=== PATIENT | female | born 1945 | race Caucasian/White ===

== ENCOUNTER 2019-04-30 05:34 | Emergency (ER) | payer SELFPAY ==
[2019-04-30] VITALS (7 sets, daily range): BP systolic 131–195; BP diastolic 80–103; PULSE 82–107; RESP 16–19; TEMP 36.9–37.1; O2SAT 94–99; BMI 33.4
--- NOTE | 2019-04-30 06:02 | XR_ITS ---
WS: [id number] XR chest 1V portable [id number] REASON FOR EXAM: dyspnea/cough FINDINGS: Elevation of the right hemidiaphragm. The heart is not enlarged. The lung roldan appear to be adequately aerated no active infiltrates. No osseous abnormalities. XR/XR chest 1V portable [id number] IMPRESSION: Negative chest for active pathology.
--- NOTE | 2019-04-30 06:04 | W.ED.EXTPRO ---
HPI - Extremity Problem General: Chief complaint: Extremity Injury, Lower Stated complaint: CRAMPING IN LEGS X3 WEEKS Time Seen by Provider: 04/30/19 06:02 History of Present Illness: HPI Narrative: 73-year-old female presents to the emergency room via ambulance from [facility]. She tells me she had a stroke in the past which affected both of her left and right sides equally. She moved here from [place] after the stroke to be nearer to family she has improved function she reports bilaterally in her upper extremities but still has some muscle cramping in her left leg. She presents emergency room today because of cramping on the left calf. She usually has been using pain medications ice and heat as well as some physical therapy to try to alleviate this this morning and had become markedly worse this is gone on for 3 to 4 months. Patient also has an essentially carbajal positive review of systems. Patient is nonweightbearing and uses a wheelchair at all times she does assist somewhat in transfers. MD Complaint: extremity pain Onset (ago): month(s) (3) Pain Consistency: intermittent Location: left, lower extremity and other (Left foot and ankle and calf) Quality: aching Radiation: none Relieving factors: nothing Exacerbating factors: nothing Associated symptoms: Reports chest pain and fever(s); Deny rash Context: other (Stroke approximately 1 year ago) Review of Systems Narrative: Review of systems generally unreliable as patient answers in the affirmative to all questions asked Const: Reports: fever, change in appetite, fatigue and malaise ENMT: Reports: throat pain, ear pain and nasal congestion; Denies: nasal discharge Card: Reports: chest pain, edema, shortness of breath on exertion and shortness of breath when lying down Resp: Reports: shortness of breath and non-productive cough; Denies: productive cough GI: Reports: abdominal pain, nausea and bloating; Denies: vomiting, vomiting blood, coffee grounds in vomit, diarrhea, constipation, blood in stool or black tarry stool : Reports: flank pain, difficulty urinating, painful urination, urinary frequency and urinary urgency Musc: Reports: extremity pain, extremity swelling, joint pain, joint stiffness, limited range of motion and muscle cramps Skin/Breast: Reports: itching; Denies: rash PFS ED PFSH: Medical History CVA (cerebral vascular accident) Diabetes mellitus Essential (primary) hypertension Social History Smoking and tobacco status: former smoker Physical Exam Const: COMMON NORMALS: no apparent distress GENERAL APPEARANCE: cooperative and comfortable ORIENTATION/CONSCIOUSNESS: Yes awake, Yes oriented to person, Yes oriented to place and Yes oriented to time HENMT: COMMON NORMALS: normocephalic, head/scalp atraumatic, hearing grossly normal bilaterally, external ears normal, EAC's normal, TM's normal bilaterally, nasal mucous membranes and turbinates normal, moist oral mucous membranes and oropharynx normal HEAD & SCALP: normocephalic and atraumatic NOSE: nasal mucous membranes and turbinates normal EXTERNAL EAR: Yes external ears normal EXTERNAL AUDITORY CANAL: EAC's normal TYMPANIC MEMBRANE: TM's normal bilaterally Eye: COMMON NORMALS: PERRL, EOMs intact bilaterally, conjunctivae normal and no scleral icterus CONJUNCTIVA: Yes conjunctivae normal PUPIL: Yes PERRL Neck/C-Spine: COMMON NORMALS: full ROM, no lymphadenopathy, supple and no JVD Lymph: LYMPHATIC: no lymphadenopathy noted and no lymphedema noted Resp: COMMON NORMALS: normal respiratory effort, no retractions, no use of accessory muscles and clear to auscultation bilaterally AUSCULTATION: clear to auscultation bilaterally Cardio: COMMON NORMALS: no JVD, regular rate, regular rhythm and no murmurs RATE: regular rate RHYTHM: regular rhythm GI: COMMON NORMALS: soft to palpation and no hepatosplenomegaly AUSCULTATION: Yes normoactive bowel sounds PALPATION: Yes soft, No tender, No guarding and Yes no hepatosplenomegaly Extremity: COMMON NORMALS: normal to inspection, normal capillary refill, no clubbing, cyanosis or edema, no calf tenderness and no pedal edema Neuro: SENSORIUM/ORIENTATION: Yes oriented to person, Yes oriented to place and Yes oriented to time Skin: COMMON NORMALS: no rashes or lesions noted GENERAL SKIN EXAM: no rashes or lesions noted Course ED course: Flu a positive suspect her increasing myalgias are due to result of symptoms of the flu start Tamiflu continue other previously prescribed medications Vital Signs: Vital signs: Vital Signs Temperature 98.5 F 04/30/19 07:45 Pulse Rate 107 H 04/30/19 10:09 Respiratory Rate 19 H 04/30/19 10:09 Blood Pressure 195/89 04/30/19 10:09 Pulse Oximetry 94 04/30/19 10:09 MDM - Extremity (Nontraumatic) Lab Data: Labs: Lab Results 04/30/19 04/30/19 04/30/19 Range/Units 06:05 06:05 06:11 WBC 5.6 (4.0-10.0) 10^3/ uL RBC 4.31 (4.1-5.3) 10^6/u L Hgb 12.4 (11.5-15.3) g/dL Hct 38.5 (37.0-47.0) % MCV 89.3 (81-99) fL MCH 28.8 (28.0-34.0) pg MCHC 32.2 (30.0-36.0) g/dL RDW 14.5 (12.1-15.1) % Plt Count 204 (130-400) 10^3/c mm MPV 8.8 (7.4-10.4) fL Neut % (Auto) 70.2 % Lymph % (Auto) 20.8 % [place] % (Auto) 6.6 % Eos % (Auto) 1.6 % Baso % (Auto) 0.4 % Neut # (Auto) 3.9 (1.8-7.7) 10^3/u L Lymph # (Auto) 1.2 (0.8-4.8) 10^3/u L [place] # (Auto) 0.4 (0.2-0.9) 10^3/u L Eos # (Auto) 0.1 (0.0-0.8) 10^3/u L Baso # (Auto) 0.0 (0.0-0.1) 10^3/u L Nucleated RBC % (a uto) 0 % Nucleated RBCs # 0.0 /100WBC Sodium (136-145) mmol/L Potassium (3.5-5.1) mmol/L Chloride (98-107) mmol/L Carbon Dioxide (22-29) mmol/L Anion Gap (5-19) BUN (8-23) mg/dL Creatinine (0.5-0.9) mg/dL Glucose (65-115) mg/dL Calculated Osmolal ity (285-295) mOsm/k g Calcium (8.5-10.5) mg/dL Urine Color Yellow (Yellow) Urine Appearance Clear (CLEAR) Urine pH 6.5 (5-7) Ur Specific Gravit y 1.005 (1.005-1.030) Urine Protein Neg (Negative) Urine Glucose (UA) Norm (Normal) Urine Ketones Negative (Negative) Urine Occult Blood Neg (Negative) Urine Nitrate Negative (Negative) Urine Bilirubin Neg (NEGATIVE) Urine Urobilinogen Norm (Negative) mg/dL Ur Leukocyte [place] ase Negative (Negative) Influenza Type A A g Positive H (Negative) POC Influenza B Ag Negative (Negative) 04/30/19 Range/Units 06:11 WBC (4.0-10.0) 10^3/ uL RBC (4.1-5.3) 10^6/u L Hgb (11.5-15.3) g/dL Hct (37.0-47.0) % MCV (81-99) fL MCH (28.0-34.0) pg MCHC (30.0-36.0) g/dL RDW (12.1-15.1) % Plt Count (130-400) 10^3/c mm MPV (7.4-10.4) fL Neut % (Auto) % Lymph % (Auto) % [place] % (Auto) % Eos % (Auto) % Baso % (Auto) % Neut # (Auto) (1.8-7.7) 10^3/u L Lymph # (Auto) (0.8-4.8) 10^3/u L [place] # (Auto) (0.2-0.9) 10^3/u L Eos # (Auto) (0.0-0.8) 10^3/u L Baso # (Auto) (0.0-0.1) 10^3/u L Nucleated RBC % (a uto) % Nucleated RBCs # /100WBC Sodium 143 (136-145) mmol/L Potassium 3.7 (3.5-5.1) mmol/L Chloride 102 (98-107) mmol/L Carbon Dioxide 28 (22-29) mmol/L Anion Gap 16.7 (5-19) BUN 19 (8-23) mg/dL Creatinine 1.0 H (0.5-0.9) mg/dL Glucose 124 H (65-115) mg/dL Calculated Osmolal ity 294 (285-295) mOsm/k g Calcium 9.3 (8.5-10.5) mg/dL Urine Color (Yellow) Urine Appearance (CLEAR) Urine pH (5-7) Ur Specific Gravit y (1.005-1.030) Urine Protein (Negative) Urine Glucose (UA) (Normal) Urine Ketones (Negative) Urine Occult Blood (Negative) Urine Nitrate (Negative) Urine Bilirubin (NEGATIVE) Urine Urobilinogen (Negative) mg/dL Ur Leukocyte [place] ase (Negative) Influenza Type A A g (Negative) POC Influenza B Ag (Negative) Discharge Plan Discharge Patient Disposition: [facility] Clinical Impression: Influenza A Condition: Stable Prescriptions: New Tamiflu 75 mg capsule 75 mg PO BID 5 Days Qty: 10 RF: 0 No Action Tylenol 325 mg Tablet 650 mg PO QID PRN (Reason: Pain) RF: 0 carvedilol 12.5 mg Tablet 12.5 mg PO BID RF: 0 albuterol sulfate 2.5 mg /3 mL (0.083 %) Solution For Nebulization 2.5 mg INHALATION Q6H RF: 0 Imodium A-D 2 mg Capsule 2 mg PO Q4H PRN (Reason: Diarrhea) RF: 0 Rolaids 550-110 mg Tablet,Chewable 2 tab PO Q4H PRN (Reason: Heartburn) RF: 0 hydrocodone-acetaminophen 5-325 mg Tablet 1 tab PO Q6H PRN (Reason: Pain) RF: 0 lorazepam 0.5 mg Tablet 0.5 mg PO BID PRN (Reason: Anxiety) RF: 0 Milk of Magnesia 400 mg/5 mL Suspension 400 mg PO DAILY PRN (Reason: Constipation) RF: 0 meclizine 25 mg Tablet 25 mg PO BID PRN (Reason: Dizziness) RF: 0 amlodipine 10 mg Tablet 10 mg PO DAILY RF: 0 Dulcolax (bisacodyl) 10 mg Suppository 10 mg NC DAILY PRN (Reason: Constipation) RF: 0 lidocaine 5 % Adhesive Patch,Medicated 1 patch TOPICAL DAILY RF: 0 Fleet Enema 19-7 gram/118 mL Enema 118 ml NC DAILY PRN (Reason: Constipation) RF: 0 gabapentin 300 mg Capsule 300 mg PO BID RF: 0 omeprazole 20 mg Capsule,Delayed Release(Dr/Ec) 20 mg PO BID RF: 0 diclofenac sodium 75 mg Tablet,Delayed Release (Dr/Ec) 75 mg PO BID PRN (Reason: Pain) RF: 0 Dulcolax (bisacodyl) 5 mg Tablet,Delayed Release (Dr/Ec) 5 mg PO DAILY PRN (Reason: Constipation) RF: 0 Ventolin HFA 90 mcg/actuation Hfa Aerosol Inhaler 1 inh INHALATION QID PRN (Reason: Shortness Of Breath) RF: 0 Flonase Allergy Relief 50 mcg/actuation [place],Suspension 1 spray INTRANASAL DAILY RF: 0 docusate sodium 100 mg Tablet 100 mg PO DAILY RF: 0 Claritin 10 mg Tablet 10 mg PO DAILY RF: 0 Novolog Flexpen U-100 Insulin 100 unit/mL (3 mL) Insulin Pen 10 unit SUBCUT BID RF: 0 tizanidine 6 mg Capsule 6 mg PO TID PRN (Reason: Pain) RF: 0 Discharge Orders: Discharge Order (Routine); Ordered 04/30/19 Ordered By: Frankie Damico Discharge Diet: Usual diet Discharge Activity: Resume usual activity Activity Restrictions/Additional Instructions: Return to the [facility] on Tamiflu continue other previously prescribed medications Discharge Date/Time: 04/30/19 12:46 Coding Level of Care Code ED Records Custodian for Chg Fwd Exam Comprehensive
[2019-04-30 06:16] LABS: Basophils % 0.4 %; Eosinophils # 0.1 10^3/uL (0.0-0.8); Eosinophils % 1.6 %; Hematocrit 38.5 % (37.0-47.0); Hemoglobin 12.4 g/dL (11.5-15.3); Lymphocytes # 1.2 10^3/uL (0.8-4.8); Lymphocytes % 20.8 %; Mean Corpuscular HGB Conc 32.2 g/dL (30.0-36.0); Mean Corpuscular Hemoglobin 28.8 pg (28.0-34.0); Mean Corpuscular Volume 89.3 fL (81-99); Mean Platelet Volume 8.8 fL (7.4-10.4); Monocytes # 0.4 10^3/uL (0.2-0.9); Monocytes % 6.6 %; Neutrophils # 3.9 10^3/uL (1.8-7.7); Neutrophils % 70.2 %; Nucleated Red Blood Cells % 0 %; Platelet Count 204 10^3/cmm (130-400); Red Blood Count 4.31 10^6/uL (4.1-5.3); Red Cell Distribution Width 14.5 % (12.1-15.1); White Blood Count 5.6 10^3/uL (4.0-10.0)
[2019-04-30 06:32] LABS: Add Urine Microscopic? NO
[2019-04-30 06:34] LABS: Anion Gap 16.7 (5-19); Blood Urea Nitrogen 19 mg/dL (8-23); Calcium 9.3 mg/dL (8.5-10.5); Carbon Dioxide 28 mmol/L (22-29); Chloride 102 mmol/L (98-107); Glucose 124 mg/dL (65-115); Osmolality Calculated 294 mOsm/kg (285-295); Potassium 3.7 mmol/L (3.5-5.1); Sodium 143 mmol/L (136-145)
--- NOTE | 2019-04-30 06:37 | PC.NURSE ---
Patient brought in to ED with EMS with complaints of leg cramps for 3 weeks with no improvement. Patient reports a non-productive cough. Patient was also complaining of frequent urination and some burning with urination. Patient reports having a stroke a year or two ago and states she has deficits in both extremities from previous stroke. Foot drop noted to left foot and slight drop to right side starting at this time. Patient denies any pain at this time but reports pain with muscle cramps/spasms.
[2019-04-30] MEDS: orphenadrine 30 mg/mL Inj 2 mL 60 MG IM (07:06)
[2019-04-30 07:10] LABS: Bilirubin Urine Neg (NEGATIVE); Blood Urine Neg (Negative); Glucose Urine UA Norm (Normal); Ketones Urine Negative (Negative); Leukocyte Esterase Urine Negative (Negative); Nitrate Urine Negative (Negative); Protein Urine Neg (Negative); Specific Gravity, Urine 1.005 (1.005-1.030); Urine Appearance Clear (CLEAR); Urine Color Yellow (Yellow); Urobilinogen Urine Norm (Negative); pH Urine 6.5 (5-7)
[2019-04-30 07:25] LABS: Influenza A by IFA Positive (Negative); Influenza B by IFA Negative (Negative)
--- NOTE | 2019-04-30 09:14 | PC.NURSE ---
Patient states that she continues to have cramping in her BLE. Patient states that the cramping has been constant for greater than three weeks now and just does not seem to let up no matter what she does.
--- NOTE | 2019-04-30 10:12 | PC.NURSE ---
Patient transferred to bedside recliner from bed for comfort. Patient continues to c/o cramping in the BLE. Patient assisted to take off brief as requested and assisted to put her pants on. Patient tolerated activity well and stood well with one assist and gait belt.
== END 2019-04-30 12:46 | disposition skilled nursing facility (03) ==
PROVIDERS: Emergency Provider Family Medicine
DX: J09.X2 Influenza due to identified novel influenza A virus with other respiratory manifestations (principal); E11.9 Type 2 diabetes mellitus without complications; I10 Essential (primary) hypertension; Z86.73 Personal history of transient ischemic attack (TIA), and cerebral infarction without residual deficits; Z87.891 Personal history of nicotine dependence; Z79.4 Long term (current) use of insulin
CPT/HCPCS: 36415; 71045; 80048; 81003; 85025; 87804; 96372; 99282; 99283; J2360

== ENCOUNTER 2019-12-28 11:21 | Emergency (ER) | payer MEDICARE, MEDICAID, SELFPAY ==
[2019-12-28] VITALS (10 sets, daily range): BP systolic 149–192; BP diastolic 63–97; PULSE 88–110; RESP 20–30; TEMP 38; O2SAT 93–98; BMI 33.2
--- NOTE | 2019-12-28 11:27 | XRR_ITS ---
PROCEDURE INFORMATION: Exam: XR Chest, 1 View Exam date and time: 12/28/2019 11:46 AM Age: 74 years old Clinical indication: Condition or disease; Lung condition and disease and other: Covid; Asthma; Shortness of breath TECHNIQUE: Imaging protocol: XR of the chest Views: 1 view. COMPARISON: CR XR chest 1V portable [id number] 04/30/2019 6:06 AM FINDINGS: Lungs: Poor inspiration. Decreased lung volumes. Bibasilar mid to lower lung zone airspace disease compatible with bilateral pneumonia or asymmetric pulmonary edema. Pleural space: No pleural effusion or pneumothorax. Heart/Mediastinum: The cardiac silhouette is not enlarged. The mediastinum is slightly widened which can be due to mediastinal lipomatosis given the patient's body habitus. Bones/joints: No acute osseous abnormality. XR/XR chest 1V portable [id number] IMPRESSION: Bilateral pneumonia versus asymmetric pulmonary edema.
--- NOTE | 2019-12-28 11:28 | ECG_ITS ---
[facility] Test Date: 2019-12-28 Pat Name: ELOISE WALDROP Department: Room: Gender: Female Front Office Agent: : [phone] Requested By: Lexii Gallegos Order Number: [id number] Argelia MD: Bret Le M.D. Measurements Intervals [place] Rate: 93 P: 62 MI: 160 QRS: 19 QRSD: 86 T: 32 QT: 339 QTc: 422 Interpretive Statements SINUS RHYTHM NONSPECIFIC ST & T-WAVE ABNORMALITY No previous ECG available for comparison Electronically Signed On 12-29-2019 20:25:01 CDT by Bret Le M.D. [id number]
[2019-12-28 11:33] LABS: ABG PCO2 39.1 mmHg (35-45); ABG PH Result 7.42 (7.35-7.45); Arterial Blood Gas Hematocrit 38.4 % (37-47); Base Excess ABG 0.8 mmol/L (-2.0-2.0); Blood Gas Allen Test Pos; Blood Gas Operator Identificat ED; Blood Gas Sample Site Radial, left; Blood Gas Sample Type Arterial; HCO3 ABG 25.3 mmol/L (22-26); Oxygen Device NRB; PO2 ABG 90.5 mmHg (80.0-100.0)
--- NOTE | 2019-12-28 12:39 | ED_ITS ---
HPI - SOB/Dyspnea General: Chief Complaint: Shortness of Breath/Dyspnea Stated Complaint: DIFF BREATHING Time Seen by Provider: 12/28/19 11:27 History of Present Illness: HPI Narrative: This patient is a very nice 74-year-old woman coming from [facility] shelter. There was shortness of breath. Her room air saturations per EMS were 75%. The shelter had her on 4 L nasal cannula with sats only in the mid 80s. On a nonrebreather EMS was able to get her sats up into the low 90s. They also gave her a DuoNeb treatment on the way in. She is known COVID positive. She said she just started feeling short of breath yesterday. The positive test apparently was on December 25. She has not had vomiting or diarrhea. She has significant swelling in her left leg that is new. She is not sure exactly when that started but sometime within the last few days. She has a history of COPD. She said that she used to use a breathing treatment at bedtime every night but because of COVID she was taken off that and has been using inhalers which she does not think work as well. MD elicited complaint: shortness of breath and cough Pertinent past history: COPD and pneumonia Onset (ago): day(s) (2) Context: recent illness (Current COVID infection) Timing: constant and progressively worsening Severity: severe Exacerbating factors: exertion, movement and coughing Relieving factors: oxygen and upright position Known history of: COPD and diabetes Associated symptoms: Reports chest congestion, cough and extremity pain (Swelling in the left leg) Review of Systems General: Reports: 10 or more systems reviewed and unremarkable except in HPI and below Const: Reports: chills, fatigue and malaise Resp: Reports: chest congestion Musc: Reports: extremity pain (Swelling in the left leg) PFS ED PFSH: Medical History CVA (cerebral vascular accident) Diabetes mellitus Essential (primary) hypertension Social History Smoking and tobacco status: former smoker Physical Exam Const: COMMON NORMALS: patient oriented x3, no limitations and alert GENERAL APPEARANCE: cooperative HENMT: HEAD & SCALP: normal to inspection FACE & SINUS: normal facial exam Eye: GENERAL EYE: appearance normal, both eyes and all related structures Neck/C-Spine: COMMON NORMALS: supple, no meningeal signs and no JVD Chest: COMMONS NORMALS: normal inspection of the chest Resp: EFFORT & INSPECTION: Yes tachypneic, Yes respiratory distress (Very mild), Yes labored, Yes Actively coughing moist and Yes uses accessory muscles Cardio: COMMON NORMALS: no JVD, regular rate, regular rhythm and No murmurs present (Cardio) RATE: regular rate RHYTHM: regular rhythm GI: COMMON NORMALS: Normal to inspection, nondistended, normoactive bowel soun ds present, Soft to palpation and non-tender INSPECTION: Yes normal to inspection AUSCULTATION: Yes normoactive bowel sounds PALPATION: Yes Soft to palpation Back/Pelvis: COMMON NORMALS: thoracic and lumbar spine normal to inspection Extremity: OTHER: The left lower leg is noticeably larger than the right, edema, tenderness to palpation. Neuro: COMMON NORMALS: patient oriented x3, moves all extremities, no focal motor deficits and no sensory deficits noted SENSORIUM/ORIENTATION: Yes alert MENINGEAL SIGNS: Yes no meningeal signs Psych: COMMON NORMALS: mental status grossly normal, cooperative and normal affect Skin: COMMON NORMALS: no rashes or lesions noted and turgor normal GENERAL SKIN EXAM: no rashes or lesions noted and turgor normal Course ED course: Patient with known COVID. She also has a history of COPD. I discussed her with the hospitalist here and we did not have the level of care that she would need available. Our viral ICU is full. Because of her requiring nonrebreather oxygen we did not feel that she would be safe on the floor. For that reason she was transferred and was accepted at [facility]. Vital Signs: Vital signs: Vital Signs Temperature 100.4 F H 12/28/19 11:23 Pulse Rate 110 H 12/28/19 18:50 Respiratory Rate 30 H 12/28/19 18:50 Blood Pressure 160/85 12/28/19 18:50 Pulse Oximetry 96 12/28/19 18:50 MDM - SOB/Dyspnea Lab Data: Labs: Lab Results 12/28/19 12/28/19 12/28/19 Range/Units 11:22 13:05 13:05 WBC 4.8 (4.0-10.0) 10^3/ uL RBC 4.35 (4.1-5.3) 10^6/u L Hgb 12.5 (11.5-15.3) g/dL Hct 40.5 (37.0-47.0) % MCV 93.1 (81-99) fL MCH 28.7 (28.0-34.0) pg MCHC 30.9 (30.0-36.0) g/dL RDW 14.1 (12.1-15.1) % Plt Count 110 L (130-400) 10^3/c mm MPV 9.5 (7.4-10.4) fL Neut % (Auto) 87.0 % Lymph % (Auto) 5.9 % [place] % (Auto) 6.5 % Eos % (Auto) 0.0 % Baso % (Auto) 0.4 % Neut # (Auto) 4.13 (1.8-7.7) 10^3/u L Lymph # (Auto) 0.3 L (0.8-4.8) 10^3/u L [place] # (Auto) 0.3 (0.2-0.9) 10^3/u L Eos # (Auto) 0.0 (0.0-0.8) 10^3/u L Baso # (Auto) 0.0 (0.0-0.1) 10^3/u L Nucleated RBC % (a uto) 0 % Nucleated RBCs # 0.0 /100WBC PT 13.30 (12.1-14.9) SECO NDS INR 0.98 (0.8-1.2) Fibrinogen 677 H (174-498) mg/dL D-Dimer 2.26 H (0-0.59) ug/mIFE U Specimen Type Arterial Sample Site Radial, left ABG pH 7.42 (7.35-7.45) ABG pCO2 39.1 (35-45) mmHg ABG pO2 90.5 (80.0-100.0) mmH g ABG HCO3 25.3 (22-26) mmol/L ABG Base Excess 0.8 (-2.0-2.0) mmol/ L Luis A Test Pos Hematocrit 38.4 (37-47) % O2 Delivery Device Nrb O2 Liters/Min 15.0 % FiO2 100.0 % Senior Corporate Strategy Manager ID Ed Sodium (136-145) mmol/L Potassium (3.5-5.1) mmol/L Chloride (98-107) mmol/L Carbon Dioxide (22-29) mmol/L Anion Gap (5-19) BUN (8-23) mg/dL Creatinine (0.5-0.9) mg/dL GFR Calculation Glucose (65-115) mg/dL Calculated Osmolal ity (285-295) mOsm/k g Lactic Acid (0.5-2.2) mmol/L Calcium (8.5-10.5) mg/dL Ferritin (15-150) ng/mL Total Bilirubin (0.15-1.2) mg/dL AST (0-32) U/L ALT (0-33) U/L Alkaline Phosphata se (35-105) IU/L Lactate Dehydrogen ase (135-214) U/L Troponin T Baselin e (0-10) ng/L Troponin T 120 Min [place] (0-10) ng/L Delta Troponin T (0-10) ABS# C-Reactive Protein (0.0-4.9) mg/L NT-Pro-B Natriuret Pep (0-125) pg/mL Total Protein (6.6-8.7) g/dL Albumin (3.5-5.2) g/dL Globulin (1.3-4.6) g/dL Procalcitonin (0-0.5) ng/mL Urine Color (Yellow) Urine Appearance (CLEAR) Urine pH (5-7) Ur Specific Gravit y (1.005-1.030) Urine Protein (Negative) Urine Glucose (UA) (Normal) Urine Ketones (Negative) Urine Blood (Negative) Urine Nitrate (Negative) Urine Bilirubin (Negative) Urine Urobilinogen (Negative) mg/dL Ur Leukocyte [place]aken[place] ase (Negative) Urine RBC (0-2) /hpf Urine WBC (0-5) /hpf Ur Squamous Epith Cells (0-5) /hpf Amorphous Sediment /hpf Urine Bacteria (NONE) /hpf Urine Mucus /hpf 12/28/19 12/28/19 12/28/19 Range/Units 13:05 13:05 13:55 WBC (4.0-10.0) 10^3/ uL RBC (4.1-5.3) 10^6/u L Hgb (11.5-15.3) g/dL Hct (37.0-47.0) % MCV (81-99) fL MCH (28.0-34.0) pg MCHC (30.0-36.0) g/dL RDW (12.1-15.1) % Plt Count (130-400) 10^3/c mm MPV (7.4-10.4) fL Neut % (Auto) % Lymph % (Auto) % [place] % (Auto) % Eos % (Auto) % Baso % (Auto) % Neut # (Auto) (1.8-7.7) 10^3/u L Lymph # (Auto) (0.8-4.8) 10^3/u L [place] # (Auto) (0.2-0.9) 10^3/u L Eos # (Auto) (0.0-0.8) 10^3/u L Baso # (Auto) (0.0-0.1) 10^3/u L Nucleated RBC % (a uto) % Nucleated RBCs # /100WBC PT (12.1-14.9) SECO NDS INR (0.8-1.2) Fibrinogen (174-498) mg/dL D-Dimer (0-0.59) ug/mIFE U Specimen Type Sample Site ABG pH (7.35-7.45) ABG pCO2 (35-45) mmHg ABG pO2 (80.0-100.0) mmH g ABG HCO3 (22-26) mmol/L ABG Base Excess (-2.0-2.0) mmol/ L Luis A Test Hematocrit (37-47) % O2 Delivery Device O2 Liters/Min % FiO2 % Senior Corporate Strategy Manager ID Sodium 143 (136-145) mmol/L Potassium 4.4 (3.5-5.1) mmol/L Chloride 105 (98-107) mmol/L Carbon Dioxide 21 L (22-29) mmol/L Anion Gap 21.4 H (5-19) BUN 30 H (8-23) mg/dL Creatinine 1.1 H (0.5-0.9) mg/dL GFR Calculation Not Reportable Glucose 160 H (65-115) mg/dL Calculated Osmolal ity 306 H (285-295) mOsm/k g Lactic Acid (0.5-2.2) mmol/L Calcium 9.3 (8.5-10.5) mg/dL Ferritin 208 H (15-150) ng/mL Total Bilirubin 0.5 (0.15-1.2) mg/dL AST 28 (0-32) U/L ALT 29 (0-33) U/L Alkaline Phosphata se 111 H (35-105) IU/L Lactate Dehydrogen ase 292 H (135-214) U/L Troponin T Baselin e 24 H (0-10) ng/L Troponin T 120 Min [place] (0-10) ng/L Delta Troponin T (0-10) ABS# C-Reactive Protein 203.4 H (0.0-4.9) mg/L NT-Pro-B Natriuret Pep 1063 H (0-125) pg/mL Total Protein 7.0 (6.6-8.7) g/dL Albumin 3.9 (3.5-5.2) g/dL Globulin 3.1 (1.3-4.6) g/dL Procalcitonin 0.20 (0-0.5) ng/mL Urine Color Yellow (Yellow) Urine Appearance Sl hazy (CLEAR) Urine pH 5 (5-7) Ur Specific Gravit y 1.015 (1.005-1.030) Urine Protein Neg (Negative) Urine Glucose (UA) Norm (Normal) Urine Ketones Negative (Negative) Urine Blood 2+ H (Negative) Urine Nitrate Negative (Negative) Urine Bilirubin Neg (Negative) Urine Urobilinogen Neg (Negative) mg/dL Ur Leukocyte [place]aken[place] ase Negative (Negative) Urine RBC 0-4 H (0-2) /hpf Urine WBC None (0-5) /hpf Ur Squamous Epith Cells None (0-5) /hpf Amorphous Sediment 3+ /hpf Urine Bacteria 1+ H (NONE) /hpf Urine Mucus 1+ /hpf 12/28/19 12/28/19 Range/Units 16:02 16:02 WBC (4.0-10.0) 10^3/ uL RBC (4.1-5.3) 10^6/u L Hgb (11.5-15.3) g/dL Hct (37.0-47.0) % MCV (81-99) fL MCH (28.0-34.0) pg MCHC (30.0-36.0) g/dL RDW (12.1-15.1) % Plt Count (130-400) 10^3/c mm MPV (7.4-10.4) fL Neut % (Auto) % Lymph % (Auto) % [place] % (Auto) % Eos % (Auto) % Baso % (Auto) % Neut # (Auto) (1.8-7.7) 10^3/u L Lymph # (Auto) (0.8-4.8) 10^3/u L [place] # (Auto) (0.2-0.9) 10^3/u L Eos # (Auto) (0.0-0.8) 10^3/u L Baso # (Auto) (0.0-0.1) 10^3/u L Nucleated RBC % (a uto) % Nucleated RBCs # /100WBC PT (12.1-14.9) SECO NDS INR (0.8-1.2) Fibrinogen (174-498) mg/dL D-Dimer (0-0.59) ug/mIFE U Specimen Type Sample Site ABG pH (7.35-7.45) ABG pCO2 (35-45) mmHg ABG pO2 (80.0-100.0) mmH g ABG HCO3 (22-26) mmol/L ABG Base Excess (-2.0-2.0) mmol/ L Luis A Test Hematocrit (37-47) % O2 Delivery Device O2 Liters/Min % FiO2 % Senior Corporate Strategy Manager ID Sodium (136-145) mmol/L Potassium (3.5-5.1) mmol/L Chloride (98-107) mmol/L Carbon Dioxide (22-29) mmol/L Anion Gap (5-19) BUN (8-23) mg/dL Creatinine (0.5-0.9) mg/dL GFR Calculation Glucose (65-115) mg/dL Calculated Osmolal ity (285-295) mOsm/k g Lactic Acid 1.2 (0.5-2.2) mmol/L Calcium (8.5-10.5) mg/dL Ferritin (15-150) ng/mL Total Bilirubin (0.15-1.2) mg/dL AST (0-32) U/L ALT (0-33) U/L Alkaline Phosphata se (35-105) IU/L Lactate Dehydrogen ase (135-214) U/L Troponin T Baselin e (0-10) ng/L Troponin T 120 Min [place] 21.45 H (0-10) ng/L Delta Troponin T -2.55 L (0-10) ABS# C-Reactive Protein (0.0-4.9) mg/L NT-Pro-B Natriuret Pep (0-125) pg/mL Total Protein (6.6-8.7) g/dL Albumin (3.5-5.2) g/dL Globulin (1.3-4.6) g/dL Procalcitonin (0-0.5) ng/mL Urine Color (Yellow) Urine Appearance (CLEAR) Urine pH (5-7) Ur Specific Gravit y (1.005-1.030) Urine Protein (Negative) Urine Glucose (UA) (Normal) Urine Ketones (Negative) Urine Blood (Negative) Urine Nitrate (Negative) Urine Bilirubin (Negative) Urine Urobilinogen (Negative) mg/dL Ur Leukocyte [place]aken[place] ase (Negative) Urine RBC (0-2) /hpf Urine WBC (0-5) /hpf Ur Squamous Epith Cells (0-5) /hpf Amorphous Sediment /hpf Urine Bacteria (NONE) /hpf Urine Mucus /hpf Discharge Plan Discharge Patient Disposition: Xfer Other Discharge Date/Time: 12/28/19 19:34 Coding Level of Care Code ED [employer] for Christosg Fwd Exam Comprehensive
--- NOTE | 2019-12-28 12:41 | USCV_ITS ---
ELOISE WALDROP Age: 74 Gender: F : 1945 Exam Date: 12/28/2019 13:20 Ordering Phys: Lexii Moseley MD Technologist: Boone Alatorre Exam Location: [facility]_ Indication: swelling, pain HISTORY: left leg pain, swelling PROCEDURES: Venous duplex imaging was performed in only the left lower extremity. On the left side, the common femoral, superficial femoral, profunda femoral, popliteal, posterior tibial, greater saphenous veins, and the peroneal trunk were identified and interrogated in the standard fashion. FINDINGS: Normal 2-D Doppler and augmentation and compressibility throughout the lower extremity venous structures. Additional imaging through the proximal calf veins also reveals no thrombus. Limited evaluation of the greater saphenous vein is patent with no thrombus. CONCLUSIONS No DVT left lower extremity. Dr. Kimberly Burnette DO (Electronically Signed) Final Date: 29 December 2019 08:14 S
[2019-12-28 13:18] LABS: Basophils % 0.4 %; Hematocrit 40.5 % (37.0-47.0); Hemoglobin 12.5 g/dL (11.5-15.3); Lymphocytes # 0.3 10^3/uL (0.8-4.8); Lymphocytes % 5.9 %; Mean Corpuscular HGB Conc 30.9 g/dL (30.0-36.0); Mean Corpuscular Hemoglobin 28.7 pg (28.0-34.0); Mean Corpuscular Volume 93.1 fL (81-99); Mean Platelet Volume 9.5 fL (7.4-10.4); Monocytes # 0.3 10^3/uL (0.2-0.9); Monocytes % 6.5 %; Neutrophils # 4.13 10^3/uL (1.8-7.7); Nucleated Red Blood Cells % 0 %; Platelet Count 110 10^3/cmm (130-400); Red Blood Count 4.35 10^6/uL (4.1-5.3); Red Cell Distribution Width 14.1 % (12.1-15.1); White Blood Count 4.8 10^3/uL (4.0-10.0)
--- NOTE | 2019-12-28 13:28 | ECG_ITS ---
[facility] Test Date: 2019-12-28 Pat Name: ELOISE WALDROP Department: Room: Gender: Female Certified Medical Coding Specialist: : 1945 Requested By: Lexii Gallegos Order Number: [id number] Argelia MD: Bret Le M.D. Measurements Intervals [place] Rate: 96 P: 61 LA: 168 QRS: 27 QRSD: 81 T: 75 QT: 331 QTc: 418 Interpretive Statements SINUS RHYTHM NONSPECIFIC ST & T-WAVE ABNORMALITY Compared to ECG 12/28/2019 12:34:42 No significant changes Electronically Signed On 12-29-2019 20:51:26 CDT by Bret Le M.D. [email or web address]
[2019-12-28] MEDS: dexamethasone 4 mg/mL INJ 6 MG IVP (13:30)
[2019-12-28] MEDS: enoxaparin 100 mg/mL Syringe SUBCUT (13:30)
[2019-12-28 13:39] LABS: Fibrinogen 677 mg/dL (174-498); INR 0.98 (0.8-1.2)
[2019-12-28 13:42] LABS: D Dimer 2.26 ug/mIFEU (0-0.59)
[2019-12-28 13:46] LABS: Troponin(5th) Baseline 24 ng/L (0-10)
[2019-12-28 13:47] LABS: Slide Review Slide Review Perform
[2019-12-28 13:55] LABS: NT Pro B Type Natriuretic Pept 1063 pg/mL (0-125)
[2019-12-28 14:06] LABS: Alanine Aminotransferase 29 U/L (0-33); Albumin Level 3.9 g/dL (3.5-5.2); Alkaline Phosphatase 111 IU/L (35-105); Anion Gap 21.4 (5-19); Aspartate Amino Transferase 28 U/L (0-32); Blood Urea Nitrogen 30 mg/dL (8-23); C Reactive Protein 203.4 mg/L (0.0-4.9); Calcium 9.3 mg/dL (8.5-10.5); Carbon Dioxide 21 mmol/L (22-29); Chloride 105 mmol/L (98-107); Ferritin 208 ng/mL (15-150); Globulin 3.1 g/dL (1.3-4.6); Glucose 160 mg/dL (65-115); Lactate Dehydrogenase 292 U/L (135-214); Osmolality Calculated 306 mOsm/kg (285-295); Potassium 4.4 mmol/L (3.5-5.1); Sodium 143 mmol/L (136-145); Total Bilirubin 0.5 mg/dL (0.15-1.2)
[2019-12-28 14:19] LABS: Urine Appearance SL Hazy (CLEAR); Urine Color Yellow (Yellow); pH Urine 5 (5-7)
[2019-12-28 14:20] LABS: Add Urine Microscopic? YES; Bilirubin Urine Neg (Negative); Blood Urine 2+ (Negative); Glucose Urine UA Norm (Normal); Ketones Urine Negative (Negative); Leukocyte Esterase Urine Negative (Negative); Nitrate Urine Negative (Negative); Protein Urine Neg (Negative); Specific Gravity, Urine 1.015 (1.005-1.030); Urobilinogen Urine Neg (Negative)
[2019-12-28 14:32] LABS: Add Urine Culture? No; Amorphous Sediment Urine 3+ /hpf; Bacteria Urine 1+ /hpf; Mucus Urine 1+ /hpf; RBC Urine 0-4 /hpf (0-2)
[2019-12-28] MEDS: HYDROcodone-acetaminophen 5-325 mg Tablet 1 TAB PO (15:41)
[2019-12-28 16:37] LABS: Lactic Sepsis W/Reflex 1.2 mmol/L (0.5-2.2)
[2019-12-28 16:49] LABS: Troponin 5 2HR 21.45 ng/L (0-10); Troponin 5 2HR Delta -2.55 ABS# (0-10)
[2019-12-28] MEDS: orphenadrine 30 mg/mL Inj 2 mL 60 MG IM (19:34)
== END 2019-12-28 19:34 | disposition other institution (70) ==
PROVIDERS: Emergency Provider Emergency Medicine
DX: R06.02 Shortness of breath (principal); Z86.73 Personal history of transient ischemic attack (TIA), and cerebral infarction without residual deficits; E11.9 Type 2 diabetes mellitus without complications; I10 Essential (primary) hypertension; Z87.891 Personal history of nicotine dependence
CPT/HCPCS: 12345; 36600; 51702; 71045; 80053; 81001; 82728; 82803; 83605; 83615; 83880; 84145; 84484; 85025; 85378; 85384; 85610; 86140; 93005; 93971; 96365; 96367; 96372; 96375; 99284; 99285; J0743; J1100; J1650; J2360